=== PATIENT | male | born 1930 | race Caucasian/White ===

== ENCOUNTER 2016-10-09 14:33 | Emergency (ER) | payer MEDICARE, OTHER ==
[2016-10-09] MEDS ORDERED: Sodium Chloride 0.9% 1000 ML 1,000 ML IV SCH (15:00)
[2016-10-09] MEDS ORDERED: APRESOLINE 20 MG/ML INJ IV ONE (15:01)
--- NOTE | 2016-10-09 15:03 | ERPHSYRPT ---
- History of Present Illness Time Seen by Provider: 10/09/16 14:55 Source: patient Exam Limitations: clinical condition Patient Subjective Stated Complaint: "i ate italain bread two days ago. i have not had a good bm since. i had a small one today and when i wiped, there was blood on the tissue. i had to strain really hard to have my bm" Triage Nursing Assessment: aox3, breathing easy unlabored, skin pink warm dry, steady gait, able ot speak in complete setences Physician History: PATIENT COMPLAINS OF INTERMITTENT RECTAL BLEEDING PAST 2 DAYS. DENIES EMESIS, ABDOMINAL PAIN, WEAKNESS OR LETHARGY. DENIES ASSOCIATED FEVER, CHILLS. Timing/Duration: day(s) Severity: mild Associated Symptoms: denies symptoms Allergies/Adverse Reactions: No Known Drug Allergies Allergy (Unverified 10/09/16 15:01) Home Medications: Aspirin [Ecotrin] 81 mg PO DAILY 03/19/15 [History] Carvedilol [Coreg] 25 mg PO BID 03/19/15 [History] Digoxin 0.125 mg Tablet [Lanoxin 0.125MG TABLET] 125 mcg PO DAILY [History] Furosemide [Lasix] 20 mg PO BID 03/19/15 [History] Glimepiride 2 mg [Amaryl 2 MG] 2 mg PO DAILY 03/19/15 [History] Lansoprazole [Prevacid] 30 mg PO DAILY 03/19/15 [History] Losartan Potassium 50 mg [Cozaar 50 MG] 50 mg PO BID 03/19/15 [History] Potassium Chloride 10 Meq Tab* [Klor Con 10 MEQ] 10 meq PO DAILY 03/19/15 [ History] Pravastatin Sodium [Pravachol] 40 mg PO DAILY 03/19/15 [History] Docusate Sodium [Colace] 100 mg PO DAILY 10/09/16 [History] Hx Tetanus, Diphtheria Vaccination/Date Given: Yes (unknown) Hx Influenza Vaccination/Date Given: Yes (2016) Hx Pneumococcal Vaccination/Date Given: No - Review of Systems Constitutional: No Fever, No Chills Eyes: No Symptoms Ears, Nose, & Throat: No Symptoms Respiratory: No Symptoms, No Cough, No Dyspnea Cardiac: No Symptoms, No Chest Pain, No Edema, No Syncope Abdominal/Gastrointestinal: No Symptoms, Other (RECTAL BLEEDING), No Abdominal Pain, No Nausea, No Vomiting, No Diarrhea Genitourinary Symptoms: No Symptoms, No Dysuria Musculoskeletal: No Symptoms, No Back Pain, No Neck Pain Skin: No Symptoms, No Rash Neurological: No Dizziness, No Focal Weakness, No Sensory Changes Psychological: No Symptoms Endocrine: No Symptoms All Other Systems: Reviewed and Negative - Past Medical History Pertinent Past Medical History: Yes Cardiac History: Arrhythmia, Coronary Artery Disease, High Cholesterol, Hypertension Endocrine Medical History: Diabetes Type II GI Medical History: GERD - Past Surgical History Past Surgical History: Yes Cardiac: CABG, Internal Defibrillator, Pacemaker - Social History Smoking Status: Former smoker Exposure to second hand smoke: No Drug Use: none Patient Lives Alone: Yes - Nursing Vital Signs Nursing Vital Signs: Initial Vital Signs Temperature 97.7 F Temperature Source Oral Pulse Rate 64 Respiratory Rate 12 Blood Pressure [Right Arm] 126/58 Pain Intensity 0 - Physical Exam General Appearance: no apparent distress, alert Eye Exam: PERRL/EOMI, eyes nml inspection Ears, Nose, Throat Exam: normal ENT inspection, TMs normal, pharynx normal, moist mucous membranes Neck Exam: normal inspection, non-tender, supple, full range of motion Respiratory Exam: normal breath sounds, lungs clear, No respiratory distress Cardiovascular Exam: regular rate/rhythm, normal heart sounds, normal peripheral pulses Gastrointestinal/Abdomen Exam: soft, normal bowel sounds, No tenderness, No mass Rectal Exam: normal rectal tone (PERIRECTAL FISSURES, SLIGHT MAROON STOOL) Back Exam: normal inspection, normal range of motion, No CVA tenderness, No vertebral tenderness Extremity Exam: normal inspection, normal range of motion, pelvis stable Neurologic Exam: alert, oriented x 3, cooperative, normal mood/affect, nml cerebellar function, nml station & gait, sensation nml, No motor deficits Skin Exam: normal color, warm, dry, No rash Lymphatic Exam: No adenopathy SpO2 Interpretation: normal SpO2: 94 Oxygen Delivery: Room Air Ordered Tests: Active Orders 24 hr Category Date Time Status IV Insertion STAT Care 10/09/16 15:11 Active Oxygen-ED Only NASAL CANNULA 2 lpm Care 10/09/16 14:59 Active CBC W DIFF Stat Lab 10/09/16 14:55 Completed CMP Stat Lab 10/09/16 14:55 Completed DIGOXIN Stat Lab 10/09/16 14:55 Completed Occult Blood,Stool Other Stat Lab 10/09/16 15:00 Completed PROTIME WITH INR Stat Lab 10/09/16 14:55 Completed Medication Summary Generic Name Dose Route Start Last Admin Trade Name Dc PRN Reason Stop Dose Admin Sodium Chloride 1,000 mls @ 50 mls/hr 10/09/16 15:00 10/09/16 15:10 Sodium Chloride 0.9% 1000 Ml IV 11/08/16 14:59 50 mls/hr .Q20H BECKY Administration Discontinued Medications Generic Name Dose Route Start Last Admin Trade Name Dc PRN Reason Stop Dose Admin Hydralazine HCl 10 mg 10/09/16 15:01 10/09/16 15:10 Apresoline 20 Mg/Ml Inj IV 10/09/16 15:02 10 mg STAT ONE Administration Hydralazine HCl Confirm 10/09/16 15:07 Apresoline 20 Mg/Ml Inj Administered 10/09/16 15:08 Dose 20 mg .ROUTE .STK-MED ONE Sodium Chloride Confirm 10/09/16 15:07 Sodium Chloride 0.9% 1000 Ml Administered 10/09/16 15:08 Dose 1,000 mls @ ud .ROUTE .STK-MED ONE Lab/Rad Data: Laboratory Result Diagrams 10/09/16 14:55 10/09/16 14:55 Laboratory Results 10/09/16 10/09/16 10/09/16 Range/Units 15:00 14:55 14:55 WBC (4.0-10.5) K/mm3 RBC (4.1-5.6) M/mm3 Hgb (12.5-18.0) gm/dl Hct (42-50) % MCV (78-100) fl MCH (26-32) pg MCHC (32-36) g/dl RDW (11.5-14.0) % Plt Count (150-450) K/mm3 MPV (6-9.5) fl Gran % (36.0-66.0) % Lymphocytes % (24.0-44.0) % Monocytes % (0.0-12.0) % Eosinophils % (0.00-5.0) % Basophils % (0.0-0.4) % Basophils # (0-0.4) INR 1.16 (0.8-3.0) Sodium (136-145) mEq/L Potassium (3.5-5.1) mEq/L Chloride (98-107) mEq/L Carbon Dioxide (21-32) mEq/L Anion Gap (5-15) MEQ/L BUN (9-20) mg/dL Creatinine (0.55-1.30) mg/dl Estimated GFR ML/MIN Glucose (70-110) MG/DL Calcium (8.5-10.1) mg/dL Total Bilirubin (0.2-1.0) mg/dL AST (15-37) U/L ALT (12-78) U/L Alkaline Phosphatase (46-116) U/L Serum Total Protein (6.4-8.2) gm/dL Albumin (3.4-5.0) g/dL Stool Occult Blood NEGATIVE (Negative) Digoxin 1.08 (0.9-2.0) ng/ml 10/09/16 10/09/16 Range/Units 14:55 14:55 WBC 9.4 (4.0-10.5) K/mm3 RBC 5.69 H (4.1-5.6) M/mm3 Hgb 16.4 (12.5-18.0) gm/dl Hct 47.6 (42-50) % MCV 83.7 (78-100) fl MCH 28.8 (26-32) pg MCHC 34.5 (32-36) g/dl RDW 13.2 (11.5-14.0) % Plt Count 164 (150-450) K/mm3 MPV 9.6 H (6-9.5) fl Gran % 55.0 (36.0-66.0) % Lymphocytes % 27.5 (24.0-44.0) % Monocytes % 13.1 H (0.0-12.0) % Eosinophils % 3.9 (0.00-5.0) % Basophils % 0.5 (0.0-0.4) % Basophils # 0.05 (0-0.4) INR (0.8-3.0) Sodium 139 (136-145) mEq/L Potassium 4.5 (3.5-5.1) mEq/L Chloride 103 (98-107) mEq/L Carbon Dioxide 23.4 (21-32) mEq/L Anion Gap 17.1 H (5-15) MEQ/L BUN 36 H (9-20) mg/dL Creatinine 2.14 H (0.55-1.30) mg/dl Estimated GFR 31 ML/MIN Glucose 155 H (70-110) MG/DL Calcium 8.8 (8.5-10.1) mg/dL Total Bilirubin 0.5 (0.2-1.0) mg/dL AST 19 (15-37) U/L ALT 22 (12-78) U/L Alkaline Phosphatase 66 (46-116) U/L Serum Total Protein 7.7 (6.4-8.2) gm/dL Albumin 3.6 (3.4-5.0) g/dL Stool Occult Blood (Negative) Digoxin (0.9-2.0) ng/ml - Progress Progress Note: 10/09/16 16:26 THE OCCULT STOOL IS NEGATIVE, HGB-16.4 Counseled pt/family regarding: lab results, diagnosis, need for follow-up - Departure Time of Disposition: 17:35 Departure Disposition: Home Clinical Impression: CONSTIPATION Condition: Stable Critical Care Time: No Additional Instructions: TAKE OVER THE COUNTER COLACE EVERY 8 HOURS NEEDED, GLYCERINE SUPPOSITORY DAILY NEEDED FOR CONSTIPATION. FOLLOWUP WITH YOUR PRIMARY CARE PHYSICIAN. CALL OFFICE TOMORROW FOR APPOINTMENT. Prescriptions: Glycerin Supp. [Glycerin Adult Suppository] 1 supp.rect RC DAILY PRN #10 supp.rect PRN Reason: Constipation
[2016-10-09] MEDS ORDERED: Sodium Chloride 0.9% 1000 ML 1,000 ML ONE (15:07)
[2016-10-09] MEDS ORDERED: APRESOLINE 20 MG/ML INJ ONE (15:07)
[2016-10-09 15:21] LABS: BASOPHIL % 0.5 % (0.0-0.4); Eosinophil % 3.9 % (0.00-5.0); Lymphocytes % 27.5 % (24.0-44.0); Mean Cell Volume 83.7 fl (78-100); Mean Corpuscular Hemoglobin 28.8 pg (26-32); Mean Platelet Volume 9.6 fl (6-9.5); Monocytes % 13.1 % (0.0-12.0); Platelet Count 164 K/mm3 (150-450); Red Blood Count 5.69 M/mm3 (4.1-5.6); Red Cell Distribution Width 13.2 % (11.5-14.0); White Blood Count 9.4 K/mm3 (4.0-10.5)
[2016-10-09 15:51] LABS: INR 1.16 (0.8-3.0); PROTIME 12.9 SECONDS (8.83-12.87)
[2016-10-09 16:00] LABS: ALBUMIN 3.6 g/dL (3.4-5.0); ANION GAP 17.1 MEQ/L (5-15); BILIRUBIN,TOTAL 0.5 mg/dL (0.2-1.0); Carbon Dioxide 23.4 mEq/L (21-32); Potassium 4.5 mEq/L (3.5-5.1); Total Protein 7.7 gm/dL (6.4-8.2)
[2016-10-09 16:12] VITALS: BP 126/58; PULSE 64
[2016-10-09 16:32] VITALS: O2SAT 94
== END 2016-10-09 16:41 ==
LOC: ED 14:33
DX: K59.00 Constipation, unspecified (principal); K62.5 Hemorrhage of anus and rectum; I10 Essential (primary) hypertension; E11.9 Type 2 diabetes mellitus without complications; Z79.899 Other long term (current) drug therapy; Z95.1 Presence of aortocoronary bypass graft; Z98.61 Coronary angioplasty status; Z95.0 Presence of cardiac pacemaker
CPT/HCPCS: 36000; 36415; 80053; 80162; 82272; 85025; 85610; 96360; 96361; 99283; J0360

== ENCOUNTER 2019-01-28 12:06 | Observation (INO) | payer MEDICARE, OTHER ==
[2019-01-28] MEDS ORDERED: Sodium Chloride 0.9% 1000 ML 1,000 ML IV STA (12:14)
[2019-01-28] MEDS ORDERED: PROTONIX 40 MG IV IV ONE ×2 (12:14→12:43)
--- NOTE | 2019-01-28 12:19 | ERPHSYRPT ---
- History of Present Illness Time Seen by Provider: 01/28/19 12:17 Historian: patient Exam Limitations: no limitations Physician History: mild epigastric cramps for one day, nonrad, no injury, no NV, +dark stools, not dizzy Allergies/Adverse Reactions: No Known Drug Allergies Allergy (Verified 01/28/19 12:20) Home Medications: Aspirin [Ecotrin] 81 mg PO DAILY 03/19/15 [History] Carvedilol [Coreg] 25 mg PO BID 03/19/15 [History] Digoxin 0.125 mg Tablet [Lanoxin 0.125MG TABLET] 125 mcg PO DAILY [History] Furosemide [Lasix] 20 mg PO BID 03/19/15 [History] Glimepiride 2 mg [Amaryl 2 MG] 2 mg PO DAILY 03/19/15 [History] Lansoprazole [Prevacid] 30 mg PO DAILY 03/19/15 [History] Losartan Potassium 50 mg [Cozaar 50 MG] 50 mg PO BID 03/19/15 [History] Potassium Chloride 10 Meq Tab* [Klor Con 10 MEQ] 10 meq PO DAILY 03/19/15 [ History] Pravastatin Sodium [Pravachol] 40 mg PO DAILY 03/19/15 [History] Docusate Sodium [Colace] 100 mg PO DAILY 10/09/16 [History] Hx Tetanus, Diphtheria Vaccination/Date Given: Yes (unknown) Hx Influenza Vaccination/Date Given: Yes (2016) Hx Pneumococcal Vaccination/Date Given: No - Review of Systems Constitutional: Weakness, No Fever Eyes: No Eye Redness Ears, Nose, & Throat: No Mouth Pain Respiratory: No Dyspnea Cardiac: No Chest Pain Abdominal/Gastrointestinal: Abdominal Pain, Melena, No Vomiting Genitourinary Symptoms: No Dysuria Musculoskeletal: No Back Pain, No Neck Pain Skin: No Rash Neurological: No Dizziness - Past Medical History Pertinent Past Medical History: Yes Cardiac History: Arrhythmia, Coronary Artery Disease, High Cholesterol, Hypertension Endocrine Medical History: Diabetes Type II GI Medical History: GERD - Past Surgical History Past Surgical History: Yes Cardiac: CABG, Internal Defibrillator, Pacemaker - Social History Smoking Status: Former smoker Exposure to second hand smoke: No Drug Use: none Patient Lives Alone: Yes - Nursing Vital Signs Nursing Vital Signs: Initial Vital Signs Temperature 96.7 F 01/28/19 12:16 Pulse Rate 84 01/28/19 12:16 Respiratory Rate 18 01/28/19 12:16 Blood Pressure 174/91 01/28/19 12:16 Pain Scale Pain Intensity 3 - Physical Exam General Appearance: no apparent distress Eye Exam: eyes nml inspection Ears, Nose, Throat Exam: moist mucous membranes Neck Exam: normal inspection Respiratory Exam: normal breath sounds Cardiovascular Exam: regular rate/rhythm Gastrointestinal/Abdomen Exam: soft, No tenderness, No distention Extremity Exam: normal range of motion Neurologic Exam: alert, oriented x 3, cooperative Skin Exam: normal color, warm, dry - Course Nursing assessment & vital signs reviewed: Yes EKG Interpreted by Me: Other (v paced 69) Ordered Tests: Active Orders 24 hr Category Date Time Status EKG-ER Only STAT Care 01/28/19 12:14 Active EKG-ER Only STAT Care 01/28/19 12:16 Active IV Insertion STAT Care 01/28/19 12:14 Active IV Insertion STAT Care 01/28/19 12:16 Active CBC W DIFF Stat Lab 01/28/19 13:00 Completed CMP Stat Lab 01/28/19 13:00 Completed LIPASE Stat Lab 01/28/19 13:00 Completed Lactic Acid Stat Lab 01/28/19 12:30 Completed Occult Blood, Other Screening Stat Lab 01/28/19 12:40 Completed PROTIME WITH INR Stat Lab 01/28/19 13:00 Completed TROPONIN Q3H Lab 01/28/19 13:00 Completed TROPONIN Q3H Lab 01/28/19 15:15 Ordered TROPONIN Q3H Lab 01/28/19 18:15 Ordered TROPONIN Q3H Lab 01/28/19 21:15 Ordered TROPONIN Q3H Lab 01/29/19 00:15 Ordered TROPONIN Q3H Lab 01/29/19 00:30 Ordered UA W/RFX UR CULTURE Stat Lab 01/28/19 12:15 Completed Medication Summary Discontinued Medications Generic Name Dose Route Start Last Admin Trade Name Freq PRN Reason Stop Dose Admin Sodium Chloride 1,000 mls @ 999 mls/hr 01/28/19 12:14 01/28/19 12:47 Sodium Chloride 0.9% 1000 Ml IV 01/28/19 13:14 999 mls/hr .Q1H1M STA Administration Sodium Chloride Confirm 01/28/19 12:43 Sodium Chloride 0.9% 1000 Ml Administered 01/28/19 12:44 Dose 1,000 mls @ ud .ROUTE .STK-MED ONE Pantoprazole Sodium 40 mg 01/28/19 12:14 01/28/19 12:47 Protonix 40 Mg Iv IV 01/28/19 12:15 40 mg STAT ONE Administration Pantoprazole Sodium Confirm 01/28/19 12:43 Protonix 40 Mg Iv Administered 01/28/19 12:44 Dose 40 mg IV .STK-MED ONE Lab/Rad Data: Laboratory Result Diagrams 01/28/19 13:00 01/28/19 13:00 Laboratory Results 01/28/19 01/28/19 01/28/19 Range/Units 13:00 13:00 13:00 WBC (4.0-10.5) K/mm3 RBC (4.1-5.6) M/mm3 Hgb (12.5-18.0) gm/dl Hct (42-50) % MCV (78-100) fl MCH (26-32) pg MCHC (32-36) g/dl RDW (11.5-14.0) % Plt Count (150-450) K/mm3 MPV (6-9.5) fl Gran % (36.0-66.0) % Eos # (Auto) (0-0.5) Absolute Lymphs (auto) (1.0-4.6) Absolute Monos (auto) (0.0-1.3) Lymphocytes % (24.0-44.0) % Monocytes % (0.0-12.0) % Eosinophils % (0.00-5.0) % Basophils % (0.0-0.4) % Absolute Granulocytes (1.4-6.9) Basophils # (0-0.4) PT 14.2 H (8.83-12.87) SECONDS INR 1.22 (0.8-3.0) Sodium 137 (137-145) mmol/L Potassium 5.0 (3.5-5.1) mmol/L Chloride 100 (98-107) mmol/L Carbon Dioxide 27 (22-30) mmol/L Anion Gap 14.5 (5-15) MEQ/L BUN 29 H (9-20) mg/dL Creatinine 1.51 H (0.66-1.25) mg/dL Estimated GFR 46.7 ML/MIN Glucose 157 H (74-106) mg/dL Lactic Acid (0.4-2.0) Calcium 9.0 (8.4-10.2) mg/dL Total Bilirubin 0.50 (0.2-1.3) mg/dL AST 37 (17-59) U/L ALT 17 (0-50) U/L Alkaline Phosphatase 65 (38-126) U/L Troponin I 0.018 (0.000-0.034) ng/mL Serum Total Protein 7.1 (6.3-8.2) g/dL Albumin 3.7 (3.5-5.0) g/dL Lipase 44 (23-300) U/L Urine Color (YELLOW) Urine Appearance (CLEAR) Urine pH (5-6) Ur Specific Cadwell (1.005-1.025) Urine Protein (Negative) Urine Ketones (NEGATIVE) Urine Blood (0-5) Casey/ul Urine Nitrite (NEGATIVE) Urine Bilirubin (NEGATIVE) Urine Urobilinogen (0-1) mg/dL Ur Leukocyte Esterase (NEGATIVE) Urine WBC (Auto) (0-5) /HPF Urine RBC (Auto) (0-2) /HPF U Epithel Cells (Auto) (FEW) /HPF Urine Bacteria (Auto) (NEGATIVE) /HPF Urine Mucus (Auto) (NEGATIVE) /HPF Urine Culture Reflexed (NO) Urine Glucose (NEGATIVE) mg/dL Stool Occult Blood (Negative) 01/28/19 01/28/19 01/28/19 Range/Units 13:00 12:40 12:30 WBC 8.2 (4.0-10.5) K/mm3 RBC 5.43 (4.1-5.6) M/mm3 Hgb 16.0 (12.5-18.0) gm/dl Hct 47.1 (42-50) % MCV 86.7 (78-100) fl MCH 29.5 (26-32) pg MCHC 34.0 (32-36) g/dl RDW 13.5 (11.5-14.0) % Plt Count 141 L (150-450) K/mm3 MPV 9.2 (6-9.5) fl Gran % 63.4 (36.0-66.0) % Eos # (Auto) 0.27 (0-0.5) Absolute Lymphs (auto) 1.87 (1.0-4.6) Absolute Monos (auto) 0.83 (0.0-1.3) Lymphocytes % 22.7 L (24.0-44.0) % Monocytes % 10.1 (0.0-12.0) % Eosinophils % 3.3 (0.00-5.0) % Basophils % 0.5 (0.0-0.4) % Absolute Granulocytes 5.21 (1.4-6.9) Basophils # 0.04 (0-0.4) PT (8.83-12.87) SECONDS INR (0.8-3.0) Sodium (137-145) mmol/L Potassium (3.5-5.1) mmol/L Chloride (98-107) mmol/L Carbon Dioxide (22-30) mmol/L Anion Gap (5-15) MEQ/L BUN (9-20) mg/dL Creatinine (0.66-1.25) mg/dL Estimated GFR ML/MIN Glucose (74-106) mg/dL Lactic Acid 1.2 (0.4-2.0) Calcium (8.4-10.2) mg/dL Total Bilirubin (0.2-1.3) mg/dL AST (17-59) U/L ALT (0-50) U/L Alkaline Phosphatase (38-126) U/L Troponin I (0.000-0.034) ng/mL Serum Total Protein (6.3-8.2) g/dL Albumin (3.5-5.0) g/dL Lipase (23-300) U/L Urine Color (YELLOW) Urine Appearance (CLEAR) Urine pH (5-6) Ur Specific [place]well (1.005-1.025) Urine Protein (Negative) Urine Ketones (NEGATIVE) Urine Blood (0-5) Casey/ul Urine Nitrite (NEGATIVE) Urine Bilirubin (NEGATIVE) Urine Urobilinogen (0-1) mg/dL Ur Leukocyte Esterase (NEGATIVE) Urine WBC (Auto) (0-5) /HPF Urine RBC (Auto) (0-2) /HPF U Epithel Cells (Auto) (FEW) /HPF Urine Bacteria (Auto) (NEGATIVE) /HPF Urine Mucus (Auto) (NEGATIVE) /HPF Urine Culture Reflexed (NO) Urine Glucose (NEGATIVE) mg/dL Stool Occult Blood POSITIVE A (Negative) 01/28/19 Range/Units 12:15 WBC (4.0-10.5) K/mm3 RBC (4.1-5.6) M/mm3 Hgb (12.5-18.0) gm/dl Hct (42-50) % MCV (78-100) fl MCH (26-32) pg MCHC (32-36) g/dl RDW (11.5-14.0) % Plt Count (150-450) K/mm3 MPV (6-9.5) fl Gran % (36.0-66.0) % Eos # (Auto) (0-0.5) Absolute Lymphs (auto) (1.0-4.6) Absolute Monos (auto) (0.0-1.3) Lymphocytes % (24.0-44.0) % Monocytes % (0.0-12.0) % Eosinophils % (0.00-5.0) % Basophils % (0.0-0.4) % Absolute Granulocytes (1.4-6.9) Basophils # (0-0.4) PT (8.83-12.87) SECONDS INR (0.8-3.0) Sodium (137-145) mmol/L Potassium (3.5-5.1) mmol/L Chloride (98-107) mmol/L Carbon Dioxide (22-30) mmol/L Anion Gap (5-15) MEQ/L BUN (9-20) mg/dL Creatinine (0.66-1.25) mg/dL Estimated GFR ML/MIN Glucose (74-106) mg/dL Lactic Acid (0.4-2.0) Calcium (8.4-10.2) mg/dL Total Bilirubin (0.2-1.3) mg/dL AST (17-59) U/L ALT (0-50) U/L Alkaline Phosphatase (38-126) U/L Troponin I (0.000-0.034) ng/mL Serum Total Protein (6.3-8.2) g/dL Albumin (3.5-5.0) g/dL Lipase (23-300) U/L Urine Color YELLOW (YELLOW) Urine Appearance CLEAR (CLEAR) Urine pH 7.0 (5-6) Ur Specific [place] 1.008 (1.005-1.025) Urine Protein NEGATIVE (Negative) Urine Ketones NEGATIVE (NEGATIVE) Urine Blood NEGATIVE (0-5) Casey/ul Urine Nitrite NEGATIVE (NEGATIVE) Urine Bilirubin NEGATIVE (NEGATIVE) Urine Urobilinogen NEGATIVE (0-1) mg/dL Ur Leukocyte Esterase NEGATIVE (NEGATIVE) Urine WBC (Auto) NONE (0-5) /HPF Urine RBC (Auto) NONE (0-2) /HPF U Epithel Cells (Auto) NONE (FEW) /HPF Urine Bacteria (Auto) NONE SEEN (NEGATIVE) /HPF Urine Mucus (Auto) SLIGHT (NEGATIVE) /HPF Urine Culture Reflexed NO (NO) Urine Glucose 50 (NEGATIVE) mg/dL Stool Occult Blood (Negative) - Progress Progress: improved Progress Note: 01/28/19 15:28 admit d/w Dr Combs, consult d/w Dr Silvia Brownlee for dark hemoccult +stools - Departure Departure Disposition: Observation Clinical Impression: GI bleed Qualifiers: GI bleed type/associated pathology: melena Qualified Code(s): K92.1 - Melena Condition: Stable Critical Care Time: No Referrals: KELSI COMBS [Primary Care Provider] -
[2019-01-28] MEDS ORDERED: Sodium Chloride 0.9% 1000 ML 1,000 ML ONE (12:43)
[2019-01-28 13:11] LABS: BASOPHIL % 0.5 % (0.0-0.4); Basophil (Absolute #) 0.04 (0-0.4); Eosinophil % 3.3 % (0.00-5.0); Eosinophil (Absolute #) 0.27 (0-0.5); Granulocyte Absolute (ANC) 5.21 (1.4-6.9); Granulocytes % 63.4 % (36.0-66.0); Hematocrit 47.1 % (42-50); Lymphocyte (Absolute #) 1.87 (1.0-4.6); Lymphocytes % 22.7 % (24.0-44.0); Mean Cell Volume 86.7 fl (78-100); Mean Corpuscular Hemoglobin 29.5 pg (26-32); Mean Platelet Volume 9.2 fl (6-9.5); Monocyte (Absolute #) 0.83 (0.0-1.3); Monocytes % 10.1 % (0.0-12.0); Platelet Count 141 K/mm3 (150-450); Red Blood Count 5.43 M/mm3 (4.1-5.6); Red Cell Distribution Width 13.5 % (11.5-14.0); White Blood Count 8.2 K/mm3 (4.0-10.5)
[2019-01-28 13:13] LABS: Appearance CLEAR (CLEAR); Bilirubin NEGATIVE (NEGATIVE); Blood NEGATIVE Ery/ul (0-5); Glucose 50 mg/dL (NEGATIVE); Ketones NEGATIVE (NEGATIVE); Leukocyte Esterase NEGATIVE (NEGATIVE); Mucus SLIGHT /HPF (NEGATIVE); Nitrite NEGATIVE (NEGATIVE); Protein,Urine Dip NEGATIVE (Negative); Specific Gravity 1.008 (1.005-1.025); Urobilinogen NEGATIVE mg/dL (0-1)
[2019-01-28 13:16] LABS: Bacteria NONE SEEN /HPF (NEGATIVE)
[2019-01-28 13:33] LABS: INR 1.22 (0.8-3.0); PROTIME 14.2 SECONDS (8.83-12.87)
[2019-01-28 14:33] LABS: ALBUMIN 3.7 g/dL (3.5-5.0); ANION GAP 14.5 MEQ/L (5-15); BILIRUBIN,TOTAL 0.5 mg/dL (0.2-1.3); Creatinine 1 1.51 mg/dL (0.66-1.25); Total Protein 7.1 g/dL (6.3-8.2)
[2019-01-28] MEDS ORDERED: NovoLOG Insulin SQ PRN (16:46)
[2019-01-28] MEDS ORDERED: Zofran 4 MG/2 ML VIAL IV PRN (16:46)
[2019-01-28] MEDS ORDERED: Sodium Chloride 0.9% 1000 ML 1,000 ML IV SCH (16:46)
[2019-01-28] MEDS ORDERED: TYLENOL 325 MG PO PRN (17:20)
[2019-01-28] MEDS ORDERED: MEDICATION INTERVENTION PO SCH (17:30)
[2019-01-28] MEDS: LASIX 20 MG PO SCH (17:47)
[2019-01-28] MEDS: Cozaar 50 MG PO SCH (17:47)
[2019-01-28 18:08] LABS: BASOPHIL % 0.4 % (0.0-0.4); Basophil (Absolute #) 0.04 (0-0.4); Eosinophil % 3.2 % (0.00-5.0); Eosinophil (Absolute #) 0.29 (0-0.5); Granulocyte Absolute (ANC) 5.37 (1.4-6.9); Granulocytes % 58.4 % (36.0-66.0); Hematocrit 47.1 % (42-50); Lymphocyte (Absolute #) 2.38 (1.0-4.6); Lymphocytes % 25.9 % (24.0-44.0); Mean Cell Volume 87.1 fl (78-100); Mean Corpuscular Hemoglobin 29.6 pg (26-32); Mean Platelet Volume 8.7 fl (6-9.5); Monocyte (Absolute #) 1.11 (0.0-1.3); Monocytes % 12.1 % (0.0-12.0); Platelet Count 129 K/mm3 (150-450); Red Blood Count 5.41 M/mm3 (4.1-5.6); Red Cell Distribution Width 13.5 % (11.5-14.0); White Blood Count 9.2 K/mm3 (4.0-10.5)
[2019-01-28] MEDS ORDERED: DESYREL 50 MG PO PRN (18:52)
[2019-01-28] MEDS: MORPHINE SULFATE 2 MG INJ IV PRN ×2 (19:15→23:19)
[2019-01-28] MEDS ORDERED: NON-FORMULARY ITEM (Carvedilol [Coreg] 25 MG) PO SCH (22:00)
[2019-01-28] MEDS: COREG 12.5 MG PO SCH (22:01)
[2019-01-29] MEDS ORDERED: Sodium Chloride 0.9% 1000 ML 0 ML ONE (04:02)
[2019-01-29] MEDS: MORPHINE SULFATE 2 MG INJ IV PRN (04:10)
[2019-01-29 05:44] LABS: BASOPHIL % 0.9 % (0.0-0.4); Basophil (Absolute #) 0.07 (0-0.4); Eosinophil % 4.1 % (0.00-5.0); Eosinophil (Absolute #) 0.31 (0-0.5); Granulocyte Absolute (ANC) 4.08 (1.4-6.9); Granulocytes % 54.4 % (36.0-66.0); Hematocrit 46.6 % (42-50); Hemoglobin 15.5 gm/dl (12.5-18.0); Lymphocyte (Absolute #) 1.97 (1.0-4.6); Lymphocytes % 26.3 % (24.0-44.0); Mean Cell Volume 87.3 fl (78-100); Mean Corpuscular Hgb Concent. 33.3 g/dl (32-36); Mean Platelet Volume 8.8 fl (6-9.5); Monocyte (Absolute #) 1.07 (0.0-1.3); Monocytes % 14.3 % (0.0-12.0); Platelet Count 130 K/mm3 (150-450); Red Blood Count 5.34 M/mm3 (4.1-5.6); Red Cell Distribution Width 13.6 % (11.5-14.0); White Blood Count 7.5 K/mm3 (4.0-10.5)
[2019-01-29 06:17] LABS: ANION GAP 10.5 MEQ/L (5-15); Calcium 8.5 mg/dL (8.4-10.2); Creatinine 1 1.28 mg/dL (0.66-1.25); Potassium 4.4 mmol/L (3.5-5.1)
[2019-01-29] MEDS ORDERED: DESYREL 50 MG PO PRN (07:15)
--- NOTE | 2019-01-29 07:53 | XRAY ---
Indication: Left upper quadrant pain. Constipation. Multiple contiguous axial images obtained through the abdomen and pelvis using enteric contrast only. Exam was initially ordered with IV contrast but not administered due to poor renal function. Comparison: None Lung bases demonstrates pulmonary emphysema and tiny calcified granulomas. No infiltrate or effusion. Heart is not enlarged with partially visualized pacer leads. Stomach is distended with contrast. Contrasted stomach and bowel loops appear nonobstructed. Normal appendix. No free fluid/air. Colon demonstrates mild diffuse scattered fecal debris and diverticulosis throughout. 1.3 cm left renal cyst. Enlarged prostate gland impresses on the base of the bladder. Remaining liver, gallbladder, pancreas, spleen, adrenal glands, kidneys, ureters, and bladder appear unremarkable for noncontrast exam. Moderate scattered vascular calcifications. Abdominal aorta demonstrates multifocal fusiform aneurysms, largest just inferior to the celiac artery measuring 3.7 cm in diameter. Osseous structures shows mild degenerative changes throughout the spine and both hips. No ventral or inguinal hernias. A few incidental left inguinal surgical clips. Impression: 1. Mild diffuse scattered fecal stasis without obstruction and colonic diverticulosis. 2. 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 3. Enlarged prostate gland and left renal cyst. 4. Pulmonary emphysema and evidence for old granulomatous disease. 5. No acute intra-abdominal/pelvic abnormalities on this noncontrast exam. CTDI 8.20
[2019-01-29] MEDS ORDERED: Amaryl 2 MG PO SCH (08:00)
[2019-01-29] MEDS: Cozaar 50 MG PO SCH (09:40)
[2019-01-29] MEDS: LASIX 20 MG PO SCH ×2 (09:41→18:18)
[2019-01-29] MEDS: Lanoxin 0.125MG TABLET PO SCH (09:41)
[2019-01-29] MEDS: COREG 12.5 MG PO SCH ×2 (09:43→22:10)
[2019-01-29] MEDS: PROTONIX 40 MG IV IV SCH (09:49)
[2019-01-29] MEDS ORDERED: Protonix 40MG Tablet PO SCH (10:00)
[2019-01-29] MEDS ORDERED: NON-FORMULARY ITEM (Linaclotide [Linzess] 145 MCG) PO SCH (10:00)
[2019-01-29] MEDS ORDERED: Januvia 50 MG PO SCH (10:00)
[2019-01-29] MEDS ORDERED: NON-FORMULARY ITEM (Lansoprazole [Prevacid] 30 MG) PO SCH (10:00)
[2019-01-29] MEDS ORDERED: Golytely Solution 4000 ML PO ONE (14:00)
[2019-01-29] MEDS: Colace 100 MG PO SCH (22:10)
[2019-01-30] MEDS: PROTONIX 40 MG IV IV SCH (10:05)
[2019-01-30] MEDS: Cozaar 50 MG PO SCH (10:06)
[2019-01-30] MEDS: Lanoxin 0.125MG TABLET PO SCH (10:06)
[2019-01-30] MEDS: COREG 12.5 MG PO SCH ×2 (10:10→20:49)
[2019-01-30] MEDS: Colace 100 MG PO SCH ×2 (10:10→20:49)
[2019-01-30] MEDS: LASIX 20 MG PO SCH ×2 (10:10→17:47)
[2019-01-30] MEDS: MORPHINE SULFATE 2 MG INJ IV PRN ×2 (10:38→14:57)
--- NOTE | 2019-01-30 13:05 | PCM.NOTE ---
Date and Time: 01/30/19 1300 Subjective Assessment: Per his nurse yesterday, he declined further prep for colonoscopy today but now states he continues to have abdominal pain and wants to have prep and colonoscopy tomorrow with Dr. Milan Brownlee. - Review of Systems Constitutional: No Symptoms Respiratory: No Symptoms Cardiac: No Symptoms Abdominal/Gastrointestinal: Abdominal Pain, Constipation Genitourinary Symptoms: No Symptoms Musculoskeletal: No Symptoms Skin: No Symptoms Objective Exam General Appearance: no apparent distress Neurologic Exam: alert, cooperative Skin Exam: normal color, warm, dry Respiratory Exam: normal breath sounds, lungs clear, No crackles/rales, No rhonchi, No wheezing Cardiovascular Exam: regular rate/rhythm, normal heart sounds, No murmur, No friction rub, No gallop Gastrointestinal/Abdomen Exam: soft, tenderness, No distention, No mass, No guarding Extremity Exam: normal inspection OBJECTIVE DATA Vital Signs: Vital Signs - 24 hr Temp Pulse Resp BP BP Pulse Ox 01/30/19 11:41 97.9 F 76 18 177/86 97 01/30/19 10:06 79 180/89 01/30/19 07:15 98.2 F 79 18 180/87 94 L 01/30/19 04:00 98.9 F 68 18 183/87 96 01/29/19 23:54 98.0 F 75 17 132/63 98 01/29/19 20:39 91 L 01/29/19 19:38 97.9 F 67 17 174/86 95 01/29/19 16:00 98.2 F 68 18 196/91 97 Pain Assessment - Last Documented Pain Intensity 8 Pain Scale Used 0-10 Pain Scale Intake and Output: Intake & Output 01/28/19 01/29/19 01/30/19 01/31/19 06:59 06:59 06:59 06:59 Intake Total 720 3908 380 Output Total 1950 400 Balance -1230 3508 380 Weight 53.3 kg Lab Results: Accuchecks Date 01/30/19 Date 01/29/19 Time 07:30 Time 14:00 Accucheck Value: 84 Accucheck Value: 80 Accucheck Value: 107 Accucheck Value: 123 Radiology Exams: Radiology Procedures Category Date Time Status ABDOMEN AND PELVIS W/0 CONTRAS [CT] Routine Exams 01/28/19 20:50 Completed Multi-Disciplinary Progress Notes: Multi-Disciplinary Progress Notes 01/30/19 12:20 (created 01/30/19 12:24) Case Management Note by Trini Linda ABN SIGNED AND PLACED IN CHART AT THIS TIME BY PT, VERBALIZED UNDERSTANDING THAT AFTER 48 HOURS OF OBSERVATION, VISIT WILL LIKELY NOT BE PAID FOR. PT REPORTS THAT HE DOES NOT CARE, HE WANTS TO HAVE EVERYTHING DONE WHILE HE IS HERE. COLONOSCOPY SCHEDULED FOR TOMORROW, 01/31/19 - DR. SAUNDERS WILL ADD ON TO HIS CASE LOAD. Initialized on 01/30/19 12:24 - END OF NOTE 01/30/19 12:02 Case Management Note by Trini Linda CALL TO DELPHINE PEREZ, PT'S DAUGHTER, AT [phone]. EXPLAINED TO PT'S DAUGHTER ABOUT INSURANCE AND THE LIKELIHOOD THAT INSURANCE WILL NOT COVER BEYOND 1630 TODAY. PT'S DAUGHTER VERBALIZED UNDERSTANDING, REPORTS THAT PT COULD GO TO HER HOUSE TO STAY TONIGHT AND RETURN IN THE MORNING FOR THE PROCEDURE, BUT ALSO, REPORTS THAT SHE WILL LEAVE IT UP TO HER DAD. VERBALIZED UNDERSTANDING TO ALL INFORMATION AND ABLE TO REPEAT BACK. UNDERSTANDS THAT AFTER 48 HOURS INSURANCE WILL NOT LIKELY COVER THIS VISIT. Initialized on 01/30/19 12:02 - END OF NOTE 01/30/19 11:25 (created 01/30/19 11:57) Case Management Note by Trini Linda DISCUSSION WITH PT THAT HE WAS NOT MEETING CRITERIA FOR INPATIENT STATUS AND THAT HIS INSURANCE WOULD ONLY COVER UP TO 48 HOURS IN OBSERVATION (WHICH WOULD BE UP TODAY AT 1630). PT REPORTS THAT HE HAS [employer]URANCE AND IT IS THE BEST INSURANCE YOU CAN HAVE. DISCUSSED THAT [employer] WAS HIS SECONDARY INSURANCE, AND THAT THIS INSURANCE WILL LIKELY FOLLOW MEDICARE GUIDELINES. PT REPORTS THAT HE DOESN'T CARE, HE WANTS TO STAY HERE, AND HAVE THE COLONOSCOPY TOMORROW SCHEDULED. REPORTS THAT HE DOES NOT WANT TO GO HOME AND COME BACK. DISCUSSED THAT THIS WAS AN OUTPATIENT PROCEDURE AND ANYTHING DONE AFTER 1630 TODAY WOULD LIKELY NOT BE COVERED. PT VERBALIZED UNDERSTANDING AND REQUESTED THAT THIS MED ADMIN CALL HIS DAUGHTER. Initialized on 01/30/19 11:57 - END OF NOTE Assessment/Plan (1) Melena Current Visit: Yes Status: Acute Assessment & Plan: Patient plans to prep for colonoscopy today/tonight and have this done tomorrow. Code(s): K92.1 - MELENA (2) Abdominal pain Current Visit: Yes Status: Acute Assessment & Plan: Continue morphine as needed and IV protonix. General surgeon has seen patient. Code(s): R10.9 - UNSPECIFIED ABDOMINAL PAIN (3) CAD (coronary artery disease) Current Visit: Yes Status: Acute Assessment & Plan: Sees Dr. Frank; currently stable; EKG with paced rhythm from admission. Code(s): I25.10 - ATHSCL HEART DISEASE OF [place] CORONARY ARTERY W/O ANG PCTRS (4) AAA (abdominal aortic aneurysm) without rupture Current Visit: Yes Status: Acute Assessment & Plan: Less than 5 cm; will have him follow with Dr. Frank. Code(s): I71.4 - ABDOMINAL AORTIC ANEURYSM, WITHOUT RUPTURE (5) Hypertension Current Visit: Yes Status: Acute Qualifiers: Hypertension type: essential hypertension Qualified Code(s): I10 - Essential (primary) hypertension Assessment & Plan: Continue home medication. Code(s): I10 - ESSENTIAL (PRIMARY) HYPERTENSION (6) GERD (gastroesophageal reflux disease) Current Visit: Yes Status: Acute Assessment & Plan: Continue protonix. Code(s): K21.9 - GASTRO-ESOPHAGEAL REFLUX DISEASE WITHOUT ESOPHAGITIS
[2019-01-30] MEDS ORDERED: Golytely Solution 4000 ML PO ONE (15:00)
[2019-01-31] MEDS: MORPHINE SULFATE 2 MG INJ IV PRN (08:02)
--- NOTE | 2019-01-31 09:31 | HP ---
HISTORY OF PRESENT ILLNESS: This is an 88 year-old patient of mine who presented to the emergency department complaining of black stools. The patient also complains of constipation. He states that he recently saw Dr. Yates and from review of the outpatient chart he saw him on 01/18/2019 and was started on Linzess for the constipation. The patient thinks his last colonoscopy was back in . He states two days ago he had a small black stool and has been more constipated for two to three weeks. The patient reports that is also sometimes hard to catch his breath. He recently qualified for oxygen at night at home but declined that here in the hospital. The patient could not really tell me why he declined that. He also reports some epigastric discomfort. He reports the dose of morphine that he had 0400 hours helped take his pain away. He had not been able to sleep until they gave him that medication. REVIEW OF SYSTEMS: No nausea or vomiting. No cough or rhinorrhea. No lower extremity edema. He had some dry skin on his arms and a scrape on his right elbow that is bleeding a little bit. PAST MEDICAL HISTORY: Diabetes mellitus type 2, coronary artery disease, abdominal aortic aneurysm found on CT scan during this hospitalization, hypertension, gastroesophageal reflux disease, congestive heart failure, benign prostatic hypertrophy, chronic kidney disease. PAST SURGICAL HISTORY: Coronary artery bypass graft. Pacemaker with defibrillator. Eye surgery for cataracts. MEDICATIONS: Please see the home medication reconciliation form which I reviewed. ALLERGIES: NKDA. SOCIAL HISTORY: He used to smoke. He has a 43 pack year history. He lives alone. He has family that live in the area. FAMILY HISTORY: His mother is and of old age. His father is and had hypertension. PHYSICAL EXAMINATION: VITAL SIGNS: Temperature current 98.1F, temperature max 98.1F, heart rate 65, respiratory rate 18, blood pressure 128/61. Oxygen saturation 99% on room air. GENERAL: The patient is a pleasant talkative, thin man sitting up in no acute distress. CVS: He has a regular rate and rhythm. No murmurs, gallops or rubs. CHEST: Clear to auscultation bilaterally. No crackles or wheezes. ABDOMEN: He has mild epigastric tenderness. No guarding. No rigidity. Normal bowel sounds. EXTREMITIES: No clubbing, cyanosis or edema. SKIN: He has dry skin on arms bilaterally. Small scrape on his right elbow with some blood on his sheets. LABORATORY DATA AND TESTS: His hemoglobin has been stable. It was 16 on admission, at 1300 hours yesterday and 1800 hours it was 16 and at 0530 hours this morning 15.5. PLT count 130,000. Creatinine 1.2. He had two negative troponins. He had a CT scan of his abdomen and pelvis. Please see the radiologist report for that dictation. ASSESSMENT AND PLAN: 1) MELENA: He had a stool that was positive for blood. General surgeon, Dr. Carlin Brownlee, has been consulted and plans to see the patient today for possible scopes. I did discuss with the patient that may be an option to do the scopes as an outpatient as well. 2) ABDOMINAL PAIN: As there was a concern for ulcer or gastritis, he has been started on a proton pump inhibitor. He has morphine for severe pain and Tylenol for mild pain. 3) DIABETES MELLITUS TYPE 2: As he is not taking as much in, I held his glimepiride and sitagliptin. He has a low dose sliding scale ordered as needed. 4) CORONARY ARTERY DISEASE: He follows with Dr. Frank and this has been stable. 5) ABDOMINAL AORTIC ANEURYSM: Will let Dr. Frank know if he can continue to follow. 6) HYPERTENSION: Currently well controlled. 7) GASTROESOPHAGEAL REFLUX DISEASE: Again continue with pantoprazole.
[2019-01-31] MEDS ORDERED: Lactated Ringers 1,000 ML IV SCH (10:00)
[2019-01-31] MEDS: COREG 12.5 MG PO SCH (10:00)
[2019-01-31] MEDS: Colace 100 MG PO SCH (10:00)
[2019-01-31] MEDS: LASIX 20 MG PO SCH ×2 (10:00→16:39)
[2019-01-31] MEDS: Cozaar 50 MG PO SCH (10:00)
[2019-01-31] MEDS: Lanoxin 0.125MG TABLET PO SCH (10:00)
[2019-01-31] MEDS: PROTONIX 40 MG IV IV SCH (10:01)
--- NOTE | 2019-01-31 10:02 | CONS ---
CONSULT DATE: 01/28/2019 REASON FOR CONSULT: Abdominal pain. HISTORY: This 88 year-old male presents with abdominal pain. He reports that he has been having about three weeks of severe constipation. The pain started about one week ago and pain was significantly worse yesterday and into today. He did notice some dark blood in his bowel movement today or yesterday. He has been straining pretty hard to go to the bathroom and has been taking laxatives to go. His abdominal pain seems to be lower left abdomen. He denies chest pain, shortness of breath, fevers, chills, nausea or vomiting. REVIEW OF SYSTEMS: Twelve systems reviewed and negative except for in the history of present illness. PAST MEDICAL HISTORY: Diabetes, coronary artery disease with myocardial infarction, eye disease. PAST SURGICAL HISTORY: Pacer defibrillator. Coronary artery bypass graft. Colonoscopy in 1990. MEDICATIONS: Reviewed through NOV including baby aspirin. ALLERGIES: NKDA. SOCIAL HISTORY: No tobacco. No alcohol. FAMILY HISTORY: No cancer. PHYSICAL EXAMINATION: GENERAL: No acute distress. HEENT: Sclera nonicteric. Extraocular movements intact. NECK: Supple. No JVD. CHEST: Nonlabored breathing. No crepitus. ABDOMEN: Soft, nondistended, mild tenderness at reducible umbilical hernia that is fairly small otherwise completely nontender and no signs of peritonitis. LAB DATA AND TESTS: White blood cell count within normal limits. Creatinine 1.5. ASSESSMENT: Abdominal pain and rectal bleeding. PLAN: Will plan for CT abdomen and pelvis with p.o. contrast to evaluate for diverticulitis or other types of colitis as a possible etiology of his abdominal pain. He has a very benign exam at this time. Will keep him on clear liquid diet and wait for the CT scan results.
[2019-01-31 15:32] VITALS: BP 148/70; PULSE 75; O2SAT 92
--- NOTE | 2019-01-31 16:02 | PCM.DCORD ---
- Discharge Discharge Date: 01/31/19 Disposition: Home, Self-Care Condition: Fair Prescriptions: New Acetaminophen 325 mg [Tylenol 325 mg] 650 mg PO Q4H PRN PRN tablet PRN Reason: Pain Continue Carvedilol [Coreg] 25 mg PO BID Losartan Potassium 50 mg [Cozaar 50 MG] 50 mg PO DAILY Lansoprazole [Prevacid] 30 mg PO DAILY Furosemide [Lasix] 20 mg PO BID Digoxin 0.125 mg Tablet [Lanoxin 0.125MG TABLET] 125 mcg PO DAILY Aspirin [Ecotrin] 81 mg PO UD Docusate Sodium [Colace] 100 mg PO BID Glycerin Supp. [Glycerin Adult Suppository] 1 supp.rect RC DAILY PRN # 10 supp.rect PRN Reason: Constipation Linaclotide [Linzess] 145 mcg PO DAILY Discontinued Glimepiride 2 mg [Amaryl 2 MG] 2 mg PO DAILY Linagliptin [Tradjenta] 5 mg PO DAILY Additional Instructions: I stopped your diabetes medications because we have not been giving those to you here and your blood glucose has been good here without the medication. If it starts to run high again, we can restart one or both of these medications. Follow up with: KELSI COMBS [Primary Care Provider] - 1 Week ANNIKA SAUNDERS [COURTESY STAFF] - 1 Week
[2019-01-31] MEDS ORDERED: DIPRIVAN 200 MG/20 ML IV ONE (17:42)
--- NOTE | 2019-02-01 08:45 | OP ---
SURGERY DATE/TIME: 01/31/2019 1430 PREOPERATIVE DIAGNOSIS: History of rectal bleeding, abdominal cramping, need for colonoscopy. POSTOPERATIVE DIAGNOSES: 1) Pancolonic diverticulosis most concentrated in the left colon. 2) Polyps ascending colon and transverse colon. 3) Small internal and external hemorrhoids. 4) Tortuous colon. PROCEDURES: 1) Colonoscopy to terminal ileum. 2) Retrograde ileoscopy. 3) Hot biopsy removal of small ascending colon polyp versus hyperplastic lesion. 4) Hot snare polypectomy of transverse colon polyp. SURGEON: Dr. Dl Jarvis. ANESTHESIA: MAC. ESTIMATED BLOOD LOSS: Minimal. INDICATIONS: As noted above. Risks and benefits explained in detail but not limited to and consent obtained. DESCRIPTION OF PROCEDURE AND FINDINGS: The patient is taken to the operating room. MAC anesthesia induced. After official time out and no disagreement with planned procedure, digital rectal exam did not reveal any rectal masses. He did have some small internal and external hemorrhoids. Video colonoscope inserted and passed up through the tortuous sigmoid, descending, transverse and ascending colon. With external pressure the scope was able to be passed around to the cecum and up through the terminal ileum. Retrograde ileoscopy performed which was grossly unremarkable. There were no signs of any active bleeding. No signs of any collections of old blood throughout the colon or the ileum. Scope slowly and carefully withdrawn over the next 10 minutes. Stopped in the ascending colon where a small early polyp versus hyperplastic lesion removed with hot biopsy forceps with brief bursts of cautery. Good hemostasis noted. The scope was slowly and carefully withdrawn. He had some pancolonic diverticulosis most pronounced in the left colon. In the transverse colon there was 3 to 4 mm polyp on a fold this is removed with hot snare polypectomy with brief bursts of cautery. The staff said this polyp was retrieved and sent off for pathology. Good hemostasis noted. The scope is slowly and carefully withdrawn. Again, there is diverticulosis most concentrated in the left colon. There were no signs of any active bleeding. No signs of any old blood or fresh blood. The scope pulled back into the rectum. On retroflex had some internal and external hemorrhoids. No signs of any current active bleeding. The scope is withdrawn. Overall the prep was adequate with some liquidy semi-solid stool slightly limiting the exam for very tiny lesions otherwise there are no signs of any large polyps, masses or obstructing lesions. There had been no fresh or red blood. No signs of any active bleeding. Whether his bleeding had been from diverticular source or irritated small hemorrhoids is unclear but there is no current active bleeding of fresh or old blood in the colon. The scope is withdrawn. The patient tolerated the procedure well. Findings discussed with the family out in the waiting area.
== END 2019-01-31 17:43 | disposition home or self-care (01) ==
LOC: ED 12:06 → MED SURG 16:30 → ED 16:37
PROVIDERS: ADMIT Internal Medicine; ATTEND Internal Medicine
DX: K92.1 Melena (principal); R10.9 Unspecified abdominal pain; K57.30 Diverticulosis of large intestine without perforation or abscess without bleeding; E11.9 Type 2 diabetes mellitus without complications; K63.5 Polyp of colon; I25.10 Atherosclerotic heart disease of native coronary artery without angina pectoris; I71.4 Abdominal aortic aneurysm, without rupture; I10 Essential (primary) hypertension; K21.9 Gastro-esophageal reflux disease without esophagitis; K64.4 Residual hemorrhoidal skin tags; K64.8 Other hemorrhoids; Z79.899 Other long term (current) drug therapy; K59.00 Constipation, unspecified; Z95.0 Presence of cardiac pacemaker; Z95.1 Presence of aortocoronary bypass graft
CPT/HCPCS: 36000; 36415; 45384; 45385; 74176; 80048; 80053; 81001; 82272; 82962; 83036; 83605; 83690; 84484; 85025; 85610; 93005; 94760; 96360; 96361; 96374; 99285; G0378; 99100; J2270; J2405; J2704; A9270-GY

== ENCOUNTER 2019-02-02 01:46 | Observation (INO) | payer MEDICARE, OTHER ==
--- NOTE | 2019-02-02 22:03 | ERPHSYRPT ---
- History of Present Illness Time Seen by Provider: 02/02/19 21:59 Historian: patient Exam Limitations: no limitations Physician History: Pt started c/o periumbilical abdominal pain about one week ago, tonight the pain was more severe, so he called 911. He denies vomiting, nausea, diarrhea, fever, chills, difficulty urinating, other complaints. Timing/Duration: week(s) (1) Activities at Onset: none Quality: cramping Abdominal Pain Onset Location: periumbilical Pain Radiation: no radiation Severity of Pain-Max: severe Modifying Factors: Improves With: nothing Associated Symptoms: other (constipation) Previous symptoms: no prior history Allergies/Adverse Reactions: No Known Drug Allergies Allergy (Verified 01/28/19 12:20) Home Medications: Aspirin [Ecotrin] 81 mg PO UD 03/19/15 [History] Carvedilol [Coreg] 25 mg PO BID 03/19/15 [History] Digoxin 0.125 mg Tablet [Lanoxin 0.125MG TABLET] 125 mcg PO DAILY [History] Furosemide [Lasix] 20 mg PO BID 03/19/15 [History] Lansoprazole [Prevacid] 30 mg PO DAILY 03/19/15 [History] Losartan Potassium 50 mg [Cozaar 50 MG] 50 mg PO DAILY 03/19/15 [History] Docusate Sodium [Colace] 25 mg PO BID 10/09/16 [History] Atorvastatin Calcium 40 mg PO HS 02/02/19 [History] Glimepiride 4 mg [Amaryl 4 mg] 4 mg PO DAILY 02/02/19 [History] Linagliptin [Tradjenta] 5 mg PO DAILY 02/02/19 [History] Hx Tetanus, Diphtheria Vaccination/Date Given: Yes (unknown) Hx Influenza Vaccination/Date Given: Yes (2016) Hx Pneumococcal Vaccination/Date Given: No - Review of Systems Constitutional: No Symptoms Respiratory: No Symptoms Cardiac: No Symptoms Abdominal/Gastrointestinal: Abdominal Pain, Constipation All Other Systems: Reviewed and Negative - Past Medical History Pertinent Past Medical History: Yes Cardiac History: Arrhythmia, Coronary Artery Disease, High Cholesterol, Hypertension Endocrine Medical History: Diabetes Type II GI Medical History: GERD - Past Surgical History Past Surgical History: Yes Cardiac: CABG, Internal Defibrillator, Pacemaker - Social History Smoking Status: Former smoker Exposure to second hand smoke: No Drug Use: none Patient Lives Alone: Yes - Nursing Vital Signs Nursing Vital Signs: Initial Vital Signs Temperature 97.6 F 02/02/19 22:04 Pulse Rate 65 02/02/19 22:04 Respiratory Rate 20 02/02/19 22:04 Blood Pressure 182/85 02/02/19 22:04 O2 Sat by Pulse Oximetry 94 L 02/02/19 22:04 Pain Scale Pain Intensity 0 - Physical Exam General Appearance: no apparent distress Eye Exam: eyes nml inspection Ears, Nose, Throat Exam: normal ENT inspection, moist mucous membranes Neck Exam: normal inspection, non-tender Respiratory Exam: normal breath sounds, lungs clear Cardiovascular Exam: regular rate/rhythm, normal heart sounds, normal peripheral pulses, No murmur Gastrointestinal/Abdomen Exam: soft, normal bowel sounds, tenderness (diffuse, central abdomen, small (< 1 cm umbilcal hernia, easy to reduce, not hardened, no skin changes).), hernia, No distention, No mass, No pulsatile mass, No rebound, No organomegaly Extremity Exam: normal inspection Neurologic Exam: alert, oriented x 3, cooperative, normal mood/affect Skin Exam: normal color, warm, dry, No rash Lymphatic Exam: No adenopathy SpO2 Interpretation: normal O2 Delivery: Room Air - Course Nursing assessment & vital signs reviewed: Yes EKG Interpreted by Me: RATE (65/min), Other (paced) - CT Exams Abdomen CT Interpretation: Negative, Tele-radiologist Report, Other (small umbilical hernia containing fat, no bowel obstruction.) Ordered Tests: Active Orders 24 hr Category Date Time Status EKG-ER Only STAT Care 02/02/19 21:58 Active ABDOMEN AND PELVIS W/0 CONTRAS [CT] Stat Exams 02/02/19 23:06 Taken AMYLASE Stat Lab 02/02/19 22:00 Completed CBC W DIFF Stat Lab 02/02/19 22:00 Completed CK-Creatinine Phosphokinase Stat Lab 02/02/19 22:00 Completed CMP Stat Lab 02/02/19 22:00 Completed LIPASE Stat Lab 02/02/19 22:00 Completed TROPONIN Q3H Lab 02/02/19 22:00 Completed TROPONIN Q3H Lab 02/03/19 01:00 Ordered TROPONIN Q3H Lab 02/03/19 04:00 Ordered TROPONIN Q3H Lab 02/03/19 07:00 Ordered TROPONIN Q3H Lab 02/03/19 10:00 Ordered UA W/RFX UR CULTURE Stat Lab 02/02/19 22:00 Completed Medication Summary Generic Name Dose Route Start Last Admin Trade Name Cayetanoq PRN Reason Stop Dose Admin Sodium Chloride 1,000 mls @ 100 mls/hr 02/02/19 22:00 02/02/19 22:51 Sodium Chloride 0.9% 1000 Ml IV 03/04/19 21:59 100 mls/hr .Q10H BECKY Administration Lab/Rad Data: Laboratory Result Diagrams 02/02/19 22:00 02/02/19 22:00 Laboratory Results 02/02/19 02/02/19 02/02/19 Range/Units 22:00 22:00 22:00 WBC (4.0-10.5) K/mm3 RBC (4.1-5.6) M/mm3 Hgb (12.5-18.0) gm/dl Hct (42-50) % MCV (78-100) fl MCH (26-32) pg MCHC (32-36) g/dl RDW (11.5-14.0) % Plt Count (150-450) K/mm3 MPV (6-9.5) fl Gran % (36.0-66.0) % Eos # (Auto) (0-0.5) Absolute Lymphs (auto) (1.0-4.6) Absolute Monos (auto) (0.0-1.3) Lymphocytes % (24.0-44.0) % Monocytes % (0.0-12.0) % Eosinophils % (0.00-5.0) % Basophils % (0.0-0.4) % Absolute Granulocytes (1.4-6.9) Basophils # (0-0.4) Sodium (137-145) mmol/L Potassium (3.5-5.1) mmol/L Chloride (98-107) mmol/L Carbon Dioxide (22-30) mmol/L Anion Gap (5-15) MEQ/L BUN (9-20) mg/dL Creatinine (0.66-1.25) mg/dL Estimated GFR ML/MIN Glucose (74-106) mg/dL Calcium (8.4-10.2) mg/dL Total Bilirubin (0.2-1.3) mg/dL AST (17-59) U/L ALT (0-50) U/L Alkaline Phosphatase (38-126) U/L Creatine Kinase 107 (55-170) U/L Troponin I 0.033 (0.000-0.034) ng/mL Serum Total Protein (6.3-8.2) g/dL Albumin (3.5-5.0) g/dL Amylase (30-110) U/L Lipase (23-300) U/L Urine Color YELLOW (YELLOW) Urine Appearance CLEAR (CLEAR) Urine pH 7.0 (5-6) Ur Specific [place] 1.011 (1.005-1.025) Urine Protein NEGATIVE (Negative) Urine Ketones NEGATIVE (NEGATIVE) Urine Blood NEGATIVE (0-5) Casey/ul Urine Nitrite NEGATIVE (NEGATIVE) Urine Bilirubin NEGATIVE (NEGATIVE) Urine Urobilinogen NEGATIVE (0-1) mg/dL Ur Leukocyte Esterase NEGATIVE (NEGATIVE) Urine WBC (Auto) NONE (0-5) /HPF Urine RBC (Auto) NONE SEEN (0-2) /HPF U Epithel Cells (Auto) NONE (FEW) /HPF Urine Bacteria (Auto) NONE SEEN (NEGATIVE) /HPF Urine Culture Reflexed NO (NO) Urine Glucose 150 (NEGATIVE) mg/dL Slides for Path Review 02/02/19 02/02/19 Range/Units 22:00 22:00 WBC 9.1 (4.0-10.5) K/mm3 RBC 4.62 (4.1-5.6) M/mm3 Hgb 13.9 (12.5-18.0) gm/dl Hct 39.8 L (42-50) % MCV 86.1 (78-100) fl MCH 30.1 (26-32) pg MCHC 34.9 (32-36) g/dl RDW 13.2 (11.5-14.0) % Plt Count 95 L (150-450) K/mm3 MPV 9.2 (6-9.5) fl Gran % 65.8 (36.0-66.0) % Eos # (Auto) 0.25 (0-0.5) Absolute Lymphs (auto) 1.80 (1.0-4.6) Absolute Monos (auto) 1.06 (0.0-1.3) Lymphocytes % 19.7 L (24.0-44.0) % Monocytes % 11.6 (0.0-12.0) % Eosinophils % 2.7 (0.00-5.0) % Basophils % 0.2 (0.0-0.4) % Absolute Granulocytes 6.01 (1.4-6.9) Basophils # 0.02 (0-0.4) Sodium 139 (137-145) mmol/L Potassium 3.8 (3.5-5.1) mmol/L Chloride 103 (98-107) mmol/L Carbon Dioxide 29 (22-30) mmol/L Anion Gap 10.3 (5-15) MEQ/L BUN 25 H (9-20) mg/dL Creatinine 1.43 H (0.66-1.25) mg/dL Estimated GFR 49.7 ML/MIN Glucose 111 H (74-106) mg/dL Calcium 8.4 (8.4-10.2) mg/dL Total Bilirubin 0.40 (0.2-1.3) mg/dL AST 24 (17-59) U/L ALT 15 (0-50) U/L Alkaline Phosphatase 60 (38-126) U/L Creatine Kinase (55-170) U/L Troponin I (0.000-0.034) ng/mL Serum Total Protein 6.1 L (6.3-8.2) g/dL Albumin 3.0 L (3.5-5.0) g/dL Amylase 68 (30-110) U/L Lipase 27 (23-300) U/L Urine Color (YELLOW) Urine Appearance (CLEAR) Urine pH (5-6) Ur Specific [place] (1.005-1.025) Urine Protein (Negative) Urine Ketones (NEGATIVE) Urine Blood (0-5) Casey/ul Urine Nitrite (NEGATIVE) Urine Bilirubin (NEGATIVE) Urine Urobilinogen (0-1) mg/dL Ur Leukocyte Esterase (NEGATIVE) Urine WBC (Auto) (0-5) /HPF Urine RBC (Auto) (0-2) /HPF U Epithel Cells (Auto) (FEW) /HPF Urine Bacteria (Auto) (NEGATIVE) /HPF Urine Culture Reflexed (NO) Urine Glucose (NEGATIVE) mg/dL Slides for Path Review YES - Progress Progress: improved Progress Note: 02/03/19 01:11 Pt has been stable, no sign of pain or distress, afebrile, did not vomit. We reviewed his results, and discussed with him, he will be discharged home with instructions to follow up with his physician in 1 week. Counseled pt/family regarding: lab results, diagnosis, need for follow-up, rad results - Departure Departure Disposition: Home Clinical Impression: Abdominal pain Qualifiers: Abdominal location: periumbilical Qualified Code(s): R10.33 - Periumbilical pain Umbilical hernia Qualifiers: Obstruction and gangrene presence: without obstruction or gangrene Qualified Code(s): K42.9 - Umbilical hernia without obstruction or gangrene Condition: Stable Critical Care Time: No Referrals: KELSI COMBS [Primary Care Provider] - Instructions: Acute Abdomen (Belly Pain), Adult (DC), Umbilical Hernia, Adult Additional Instructions: Rest x 2-3 days, drink plenty of fluids, and follow up with your physician in one week, return if severe pain, vomiting or fever> 102 F!
[2019-02-02] MEDS ORDERED: Sodium Chloride 0.9% 1000 ML 1,000 ML ONE (22:27)
[2019-02-02 22:40] LABS: BASOPHIL % 0.2 % (0.0-0.4); Basophil (Absolute #) 0.02 (0-0.4); Eosinophil % 2.7 % (0.00-5.0); Eosinophil (Absolute #) 0.25 (0-0.5); Granulocyte Absolute (ANC) 6.01 (1.4-6.9); Granulocytes % 65.8 % (36.0-66.0); Hematocrit 39.8 % (42-50); Hemoglobin 13.9 gm/dl (12.5-18.0); Lymphocytes % 19.7 % (24.0-44.0); Mean Cell Volume 86.1 fl (78-100); Mean Corpuscular Hemoglobin 30.1 pg (26-32); Mean Corpuscular Hgb Concent. 34.9 g/dl (32-36); Mean Platelet Volume 9.2 fl (6-9.5); Monocyte (Absolute #) 1.06 (0.0-1.3); Monocytes % 11.6 % (0.0-12.0); Platelet Count 95 K/mm3 (150-450); Red Blood Count 4.62 M/mm3 (4.1-5.6); Red Cell Distribution Width 13.2 % (11.5-14.0); White Blood Count 9.1 K/mm3 (4.0-10.5)
[2019-02-02 22:45] LABS: Appearance CLEAR (CLEAR); Bilirubin NEGATIVE (NEGATIVE); Blood NEGATIVE Ery/ul (0-5); Glucose 150 mg/dL (NEGATIVE); Ketones NEGATIVE (NEGATIVE); Leukocyte Esterase NEGATIVE (NEGATIVE); Nitrite NEGATIVE (NEGATIVE); Protein,Urine Dip NEGATIVE (Negative); Specific Gravity 1.011 (1.005-1.025); Urobilinogen NEGATIVE mg/dL (0-1)
[2019-02-02 22:51] LABS: ANION GAP 10.3 MEQ/L (5-15); BILIRUBIN,TOTAL 0.4 mg/dL (0.2-1.3); Bacteria NONE SEEN /HPF (NEGATIVE); Calcium 8.4 mg/dL (8.4-10.2); Creatinine 1 1.43 mg/dL (0.66-1.25); Potassium 3.8 mmol/L (3.5-5.1); RBC NONE SEEN /HPF (0-2); Total Protein 6.1 g/dL (6.3-8.2)
[2019-02-02] MEDS: Sodium Chloride 0.9% 1000 ML 1,000 ML IV SCH (22:51)
[2019-02-03 00:17] LABS: Slide Review 1 YES
[2019-02-03] MEDS ORDERED: ENOXAPARIN SODIUM SQ ONE (02:15)
[2019-02-03] MEDS ORDERED: Ecotrin 325 MG PO ONE (02:15)
[2019-02-03] MEDS ORDERED: Nitrostat 0.4 MG Tablet SL PRN (02:21)
[2019-02-03] MEDS ORDERED: MILK OF MAGNESIA 30 ML PO PRN (02:21)
[2019-02-03] MEDS ORDERED: MAALOX ES 30 ML UNIT DOSE PO PRN (02:21)
[2019-02-03] MEDS ORDERED: NovoLOG Insulin SQ PRN ×2 (02:21→08:50)
[2019-02-03] MEDS ORDERED: Zofran 4 MG/2 ML VIAL IV PRN (02:21)
[2019-02-03] MEDS ORDERED: Senokot-S Tablet PO PRN (02:21)
[2019-02-03] MEDS ORDERED: BREVIBLOC 100 MG/10 ML IV ONE (02:45)
[2019-02-03] MEDS ORDERED: DIPRIVAN 200 MG/20 ML IV ONE (02:45)
[2019-02-03] MEDS: Sodium Chloride 0.9% 1000 ML 1,000 ML IV SCH (03:38)
[2019-02-03 05:03] LABS: Risk Ratio 4.2
[2019-02-03] MEDS: TYLENOL 325 MG PO PRN ×3 (08:00→23:02)
[2019-02-03] MEDS ORDERED: SENOKOT 8.6 MG PO PRN (08:53)
--- NOTE | 2019-02-03 09:05 | XRAY ---
Indication: Abdomen pain. Constipation. Multiple contiguous axial images obtained through the abdomen and pelvis without contrast as ordered. Comparison: January 28, 2019. Lung bases again demonstrates pulmonary emphysema and calcified granulomas. Heart is not enlarged again with partially visualized pacer leads. Noncontrasted stomach and bowel loops appear nonobstructed. Again mild diffuse scattered colonic fecal debris throughout and scattered diverticulosis again greatest sigmoid. No free fluid/air. Stable enlarged prostate gland, bilateral renal cysts, 1.5 cm right adrenal adenoma, and tiny hepatic/splenic calcified granulomas. Remaining liver, gallbladder, pancreas, spleen, left adrenal gland, kidneys, ureters, and bladder appear unremarkable for noncontrast exam. Stable diffuse scattered arteriosclerotic disease and multifocal AAA. Osseous structures remain intact again with mild degenerative changes. Impression: 1. Stable CT abdomen/pelvis without contrast exam again demonstrating fecal stasis without obstruction, colonic diverticulosis, renal cysts, right adrenal adenoma, enlarged prostate gland, diffuse arteriosclerotic disease with multifocal AAA, and evidence for wall granulomatous disease. 2. No new or acute intra-abdominal/pelvic abnormalities. Comment: Preliminary interpretation was made by [facility]. No discrepancy. CT DI 13.05
[2019-02-03] MEDS ORDERED: TYLENOL 325 MG PO PRN (09:34)
[2019-02-03] MEDS ORDERED: NON-FORMULARY ITEM (Carvedilol [Coreg] 25 MG) PO SCH (10:00)
[2019-02-03] MEDS ORDERED: NON-FORMULARY ITEM (Lansoprazole [Prevacid] 30 MG) PO SCH (10:00)
[2019-02-03] MEDS ORDERED: ECOTRIN 81 MG PO SCH (10:00)
[2019-02-03] MEDS ORDERED: Ecotrin 325 MG PO SCH (10:00)
[2019-02-03] MEDS: Miralax Powder 17GM PACKET PO SCH ×2 (10:20→22:05)
[2019-02-03] MEDS: LASIX 20 MG PO SCH ×2 (10:21→16:25)
[2019-02-03] MEDS: COREG 12.5 MG PO SCH ×2 (10:21→22:02)
[2019-02-03] MEDS: Protonix 40MG Tablet PO SCH (10:21)
[2019-02-03] MEDS: Cozaar 50 MG PO SCH (10:21)
[2019-02-03] MEDS: Lanoxin 0.125MG TABLET PO SCH (10:21)
[2019-02-03] MEDS: Colace 100 MG PO SCH ×2 (10:21→22:02)
--- NOTE | 2019-02-03 12:56 | HP ---
HISTORY OF PRESENT ILLNESS: This is an 88 year-old patient of mine who was recently discharged from the hospital on Thursday after having had report of melena and having had a colonoscopy with the general surgeon. He called the office late yesterday and said he was having some gas-type pain. I advised that he could try some simethicone, that I could follow up with him in the clinic the following day or if he was having further problems he could go to the emergency department as it was almost time for the office to close. The patient presented to the emergency department last night. According to the emergency room physician's note, he was having some abdominal pain around his umbilical hernia that was found on exam. The patient had one normal troponin and one that was 1 to 2 thousandths of a point high. The emergency room physician talked to his electrician deck, Dr. Frank, and they decided it would be best if stayed in the hospital and Dr. Frank would see him in the morning. The patient reports that he continues to feel constipated even though he was completely cleaned out for a colonoscopy on Thursday and had that done. He reports a poor appetite. The patient reports that abdominal pain is right at his umbilicus and hurts when pushing on it during the exam. The patient is concerned about his constipation. He reports he tolerates MiraLAX fine. The patient denies any chest pain at this time. REVIEW OF SYSTEMS: No chest pain. No shortness of breath. He has abdominal pain and constipation. No diarrhea. No lower extremity edema. No rashes. PAST MEDICAL HISTORY: Coronary artery disease. Incidentally found abdominal aortic aneurysm that is less than 5 cm. Constipation. Diverticulosis. Coronary artery disease. Diabetes mellitus type 2. Gastroesophageal reflux. Benign prostatic hypertrophy. History of pacemaker with defibrillator. Chronic kidney disease. PAST SURGICAL HISTORY: Pacemaker with defibrillator. Cataract surgery. Coronary artery bypass graft in 1988. MEDICATIONS: Please see the home medication reconciliation form which I have reviewed. ALLERGIES: NKDA. SOCIAL HISTORY: He used to smoke but no longer does. He does have a 43 year tobacco history. FAMILY HISTORY: Noncontributory. PHYSICAL EXAMINATION: VITAL SIGNS: Temperature current 98F, temperature max 98.1F, heart rate 65 to 80, respiratory rate 18 to 20, blood pressure 166 to 184 over 79 to 90. Oxygen saturation 93 to 97% on room air to 2 liters nasal cannula. GENERAL: The patient is sitting up in his chair in no acute distress. CVS: He has a regular rate and rhythm. No murmurs, gallops or rubs are appreciated. CHEST: Clear to auscultation bilaterally. No crackles or wheezes. ABDOMEN: Soft with tenderness right at the umbilicus. He has an easily reducible 0.5 cm umbilical hernia that the patient states is painful when reduced. Normal bowel sounds. EXTREMITIES: No clubbing, cyanosis or edema. SKIN: Warm, dry and intact. LABORATORY DATA AND TESTS: ASSESSMENT AND PLAN: 1) ELEVATED TROPONIN: Continues to be very slightly elevated. Dr. Frank was consulted and plans to see the patient. He is on aspirin. 2) CONSTIPATION: Will start MiraLAX b.i.d. as well as docusate b.i.d. and Senna as needed. 3) UMBILICAL HERNIA: If he is cleared by Dr. Frank then I will have the general surgeon see him for this tomorrow. 4) CORONARY ARTERY DISEASE: Continue current medications. 5) ABDOMINAL AORTIC ANEURYSM WITHOUT RUPTURE: It was found incidentally on his recent hospitalization. I will ask Dr. Frank to follow him for this as well. 6) ABDOMINAL PAIN: Seems located right at the umbilicus where the umbilical hernia is. He has no right upper quadrant pain. No guarding. No rigidity.
[2019-02-03] MEDS ORDERED: Lasix 20 MG/2 ML IV ONE (20:15)
[2019-02-03] MEDS ORDERED: NON-FORMULARY ITEM (Atorvastatin Calcium [Atorvastatin Calcium] 40 MG) PO SCH (22:00)
[2019-02-03] MEDS: ZOCOR 20MG PO SCH (22:02)
[2019-02-04] MEDS: TYLENOL 325 MG PO PRN ×4 (03:14→22:54)
[2019-02-04] MEDS: COREG 12.5 MG PO SCH ×2 (08:08→21:21)
[2019-02-04] MEDS: LASIX 20 MG PO SCH ×2 (08:08→17:22)
[2019-02-04] MEDS: Miralax Powder 17GM PACKET PO SCH ×2 (08:08→21:20)
[2019-02-04] MEDS: Protonix 40MG Tablet PO SCH (08:09)
[2019-02-04] MEDS: Lanoxin 0.125MG TABLET PO SCH (08:09)
[2019-02-04] MEDS: Colace 100 MG PO SCH ×2 (08:09→21:21)
--- NOTE | 2019-02-04 08:09 | CONS ---
CONSULT DATE: 02/03/2019 BRIEF HISTORY: This is an 88 year-old male with known history of coronary artery disease status post previous coronary bypass surgery with ischemic cardiomyopathy who was seen for cardiologic follow up and history of shortness of breath. The patient was apparently admitted for abdominal pain. He is being worked up for etiology of abdominal pain and had colonoscopy done last Thursday and post-procedure apparently has been having a lot of chest pain. CT scan of the abdomen showed no acute process. There was no evidence of obstruction. The patient denies any chest pain. He has been chronically short of breath but not any worse. The patient is known to have coronary artery disease and underwent six vessel coronary bypass surgery way in 1988. He has sustained significant left ventricular dysfunction. He has ICD pacemaker implanted for arrhythmia. CARDIAC RISK FACTORS: Includes diabetes. He has history of hypertension. He has hyperlipidemia. He does not smoke. FAMILY HISTORY: Positive for coronary artery disease. 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 RESPIRATORY: Occasional cough but no hemoptysis. GI: He has abdominal pain. He has history of peptic ulcer disorder. : No dysuria or hematuria. No flank pains. ENDOCRINE: No thyroid disorder. SKIN: No active dermatological problems. HEMATOLOGY: He bruises easily. PERIPHERAL VASCULAR: No history of deep venous thrombosis or claudication. PAST SURGICAL HISTORY: Coronary bypass surgery. Placement of an ICD defibrillator. 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 He is and has five children. PHYSICAL EXAMINATION: The blood pressure is 150/80 with a heart rate of 70, respirations around 16. GENERAL: The patient is an elderly male who is alert, mostly still complaining of some vague abdominal pain, is not in any form of distress. HEENT: Nonicteric sclera. Pinkish conjunctivae. NECK: No obvious JVD. CHEST: The breath sounds are clear except the right base is mildly diminished. There is no rhonchi or wheezing. CARDIAC: Heart tones are distant. The rhythm is regular. There is a grade 2/6 mid systolic murmur. There is an S4 gallop. ABDOMEN: Slightly tender and appears to be distended with rapid bowel sounds. EXTREMITIES: No significant edema with decreased distal pulses. LAB DATA AND DIAGNOSTIC TESTS: The EKG shows pacemaker rhythm. Review of the CT scan of the abdomen did show some mild abdominal aortic aneurysm which can be closely followed up. IMPRESSION: In essence the patient is admitted primarily for: 1) Abdominal pain which is currently being worked up. 2) Coronary artery disease status post previous coronary bypass surgery with ischemic cardiomyopathy currently angina free. Will stay on the same medical regimen as he appears to be well compensated. 3) Status post pacemaker/defibrillator. 4) History of hypertension. 5) History of hyperlipidemia. I will continue with the same medical regimen.
[2019-02-04] MEDS: Cozaar 50 MG PO SCH (08:10)
--- NOTE | 2019-02-04 08:45 | PCM.NOTE ---
Date and Time: 02/04/19 0840 Subjective Assessment: Patient reports continued abdominal pain mostly around his umbilicus. He states he isn't eating much, losing weight. He reports he can't belch when he wants to. He had one stool yesterday. He was seen by Dr. Frank yesterday and BNP was high and given an extra dose of IV lasix. - Review of Systems Eyes: No Symptoms Ears, Nose, & Throat: No Symptoms Respiratory: No Symptoms Cardiac: No Symptoms Abdominal/Gastrointestinal: Abdominal Pain Genitourinary Symptoms: No Symptoms Musculoskeletal: No Symptoms Objective Exam General Appearance: mild distress, thin, other (holding his stomach with his hands) Neurologic Exam: alert, cooperative Skin Exam: normal color, warm, dry Respiratory Exam: normal breath sounds, lungs clear, No crackles/rales, No rhonchi, No wheezing Cardiovascular Exam: regular rate/rhythm, normal heart sounds, No murmur, No friction rub, No gallop Gastrointestinal/Abdomen Exam: soft, normal bowel sounds, tenderness, other ( right upper abdominal pain and periumbilical pain. He has a small umbilical hernia that reduces but patient states it hurts when it is pushed on), No distention, No mass Extremity Exam: other (no c/c/e) OBJECTIVE DATA Vital Signs: Vital Signs - 24 hr Temp Pulse Resp BP BP BP Pulse Ox 02/04/19 08:24 71 16 96 02/04/19 08:09 76 178/84 02/04/19 07:00 97.9 F 76 18 178/84 96 02/04/19 03:52 97.4 F 80 18 152/73 96 02/04/19 03:00 95 02/03/19 23:29 97.6 F 77 18 190/96 95 02/03/19 23:00 95 02/03/19 19:59 92 L 02/03/19 19:39 97.5 F 78 18 173/83 100 02/03/19 19:00 100 02/03/19 15:59 98 F 67 18 160/74 100 02/03/19 15:00 97 02/03/19 12:00 98.0 F 79 18 166/79 97 02/03/19 11:00 97 Oxygen-Last 24 hours O2 Percentage 2 Liters = 28% O2 Percentage 2 Liters = 28% O2 Percentage 2 Liters = 28% Oxygen Flowrate (L/min)-RT 2 Oxygen Flowrate (L/min)-RT 2 Oxygen Flowrate (L/min)-RT 2 Oxygen Flowrate (L/min)-RT 2 Oxygen Flowrate (L/min)-RT 2 Oxygen Flowrate (L/min)-RT 2 Pain Assessment - Last Documented Pain Intensity 8 Pain Scale Used 0-10 Pain Scale Intake and Output: Intake & Output 02/02/19 02/03/19 02/04/19 02/05/19 06:59 06:59 06:59 06:59 Intake Total 240 3544 240 Output Total 350 4525 Balance -110 -981 240 Weight 55.5 kg Lab Results: Accuchecks Date 02/04/19 Date 02/03/19 Date 02/03/19 Time 07:30 Time 16:30 Time 11:00 Accucheck Value: 91 Accucheck Value: 191 Accucheck Value: 132 Accucheck Value: 120 Lab Results-Last 24 Hours 02/03/19 02/03/19 02/04/19 Range/Units 10:03 Unknown 05:15 Troponin I 0.036 H* (0.000-0.034) ng/mL NT-Pro-B Natriuret Pep 9260 H (0-1800) pg/mL Digoxin 1.3 (0.8-1.9) ng/mL Radiology Exams: Radiology Procedures Category Date Time Status ABDOMEN AND PELVIS W/0 CONTRAS [CT] Stat Exams 02/02/19 23:06 Completed GALLBLADDER [US] Routine Exams 02/04/19 Ordered Multi-Disciplinary Progress Notes: Multi-Disciplinary Progress Notes 02/03/19 09:48 Case Management Note by Noy Brewer CHRONIC CARE COORDINATION INFORMATION GIVEN TO PT AT THIS TIME. Initialized on 02/03/19 09:48 - END OF NOTE Assessment/Plan (1) CAD (coronary artery disease) Current Visit: No Status: Acute Assessment & Plan: Dr. Frank saw him and feels like he is stable. Will discontinue tele. Continue aspirin and current treatment. Code(s): I25.10 - ATHSCL HEART DISEASE OF [place] CORONARY ARTERY W/O ANG PCTRS (2) Abdominal pain Current Visit: Yes Status: Acute Qualifiers: Abdominal location: periumbilical Qualified Code(s): R10.33 - Periumbilical pain Assessment & Plan: Will ask for General Surgery consult and check right upper quadrant US. Will start simethicone. Code(s): R10.9 - UNSPECIFIED ABDOMINAL PAIN (3) Constipation Current Visit: Yes Status: Acute Assessment & Plan: Continue miralax bid and colace and senna as needed. 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 Code(s): I71.4 - ABDOMINAL AORTIC ANEURYSM, WITHOUT RUPTURE (5) Umbilical hernia without obstruction and without gangrene Current Visit: Yes Status: Acute Assessment & Plan: General surgery consult. Code(s): K42.9 - UMBILICAL HERNIA WITHOUT OBSTRUCTION OR GANGRENE (6) Poor appetite Current Visit: Yes Status: Acute Assessment & Plan: Will add Ensure. Code(s): R63.0 - ANOREXIA
[2019-02-04] MEDS: Mylicon 80MG PO SCH ×4 (09:31→21:20)
[2019-02-04] MEDS ORDERED: ECOTRIN 81 MG PO SCH ×2 (10:00)
[2019-02-04] MEDS: Sodium Chloride 0.9% 1000 ML 1,000 ML IV SCH (13:23)
--- NOTE | 2019-02-04 14:53 | XRAY ---
Indication: Right upper quadrant pain. Two-dimensional gallbladder sonogram performed. Comparison: None Gallbladder normally distended without gallstones, wall thickening, or pericholecystic fluid. Common bile duct measures 2.1 mm. No intrahepatic biliary distention. Remaining visualized liver and pancreas appear sonographically unremarkable. Right kidney measures 9.8 cm in length with a 1.2 cm lower pole cortical cyst. No solid renal mass or hydronephrosis. Impression: 1. Right renal cyst. 2. Remaining gallbladder sonogram is negative.
--- NOTE | 2019-02-04 15:43 | CONS ---
CONSULT DATE: 02/04/2019 HISTORY: The patient is an 88 year-old gentleman who has eaten, had some upper abdominal pain and had a gallbladder ultrasound. I was asked to see for surgical evaluation. The patient does have some diverticular disease, had some rectal bleeding recently. He had colonoscopy with no active bleeding. He had some diverticulosis. PAST MEDICAL HISTORY: He has coronary artery disease. History of pacemaker/defibrillator. Hypertension, hyperlipidemia, abdominal aortic aneurysm, diabetes, reflux, history of benign prostatic hypertrophy, renal insufficiency. PAST SURGICAL HISTORY: Pacemaker. Cataract. Coronary artery bypass graft in the past. MEDICATIONS: As reviewed per NOV. ALLERGIES: NKDA. REVIEW OF SYSTEMS: Fourteen systems reviewed per admission assessment, history and physical and consult on the chart. No current chest pain or palpitations. PHYSICAL EXAMINATION: GENERAL: A chronically ill gentleman. HEENT: Sclera nonicteric. NECK: No JVD. CHEST: Equal excursion, nonlabored breathing. CVS: Regular rate and rhythm. ABDOMEN: Soft with some mild tenderness epigastrium. No peritoneal signs. He has a tiny stable umbilical hernia but he is not having any tenderness at it right now and not the source of his current symptoms. EXTREMITIES: No significant edema. NEURO: Alert, moving extremities grossly symmetrically. LAB DATA AND TESTS: White blood cell count 9.1, hemoglobin 13.9, PLT 95,000. He has minimal pain, umbilical hernia. No bowel obstruction. Unchanged from previous. IMPRESSION: Some vague abdominal pain reportedly negative gallbladder ultrasound according to the staff. He is nontoxic. He is interested in considering EGD to evaluate for gastritis, peptic ulcer disease or other etiology. If it is negative, he could likely be released and if he wanted small hernia fixed electively as an outpatient we can do that. I do not think that is causing his current aches and pains. General risk of bleeding or infection, risk of bowel injury or perforation possibly requiring open procedure but not limited to. Consent obtained. Will proceed with EGD possible biopsy when OR time available.
[2019-02-04] MEDS ORDERED: Lasix 20 MG/2 ML IV ONE (20:15)
[2019-02-04] MEDS: ZOCOR 20MG PO SCH (21:22)
[2019-02-05] MEDS: TYLENOL 325 MG PO PRN (04:25)
[2019-02-05 08:00] LABS: ANION GAP 10.1 MEQ/L (5-15); BILIRUBIN,TOTAL 0.7 mg/dL (0.2-1.3); Calcium 8.6 mg/dL (8.4-10.2); Creatinine 1 1.27 mg/dL (0.66-1.25); Potassium 4.3 mmol/L (3.5-5.1); Total Protein 6.2 g/dL (6.3-8.2)
[2019-02-05 08:15] LABS: Hemoglobin 14.5 gm/dl (12.5-18.0); Mean Cell Volume 86.6 fl (78-100); Mean Corpuscular Hemoglobin 29.9 pg (26-32); Mean Corpuscular Hgb Concent. 34.5 g/dl (32-36); Mean Platelet Volume 9.3 fl (6-9.5); Platelet Count 108 K/mm3 (150-450); Red Blood Count 4.85 M/mm3 (4.1-5.6); Red Cell Distribution Width 13.2 % (11.5-14.0); White Blood Count 9.7 K/mm3 (4.0-10.5)
[2019-02-05 08:19] VITALS: O2SAT 91
[2019-02-05] MEDS: Miralax Powder 17GM PACKET PO SCH (09:34)
[2019-02-05] MEDS: Colace 100 MG PO SCH (09:35)
[2019-02-05] MEDS: COREG 12.5 MG PO SCH (09:35)
[2019-02-05] MEDS: Cozaar 50 MG PO SCH (09:35)
[2019-02-05] MEDS: Lanoxin 0.125MG TABLET PO SCH (09:35)
[2019-02-05] MEDS: Mylicon 80MG PO SCH ×2 (09:36→13:02)
[2019-02-05] MEDS: LASIX 20 MG PO SCH (09:36)
[2019-02-05] MEDS: Protonix 40MG Tablet PO SCH (09:36)
[2019-02-05 12:54] VITALS: BP 146/69; PULSE 81
--- NOTE | 2019-02-08 07:41 | OP ---
SURGERY DATE/TIME: 02/04/2019 1500 PREOPERATIVE DIAGNOSIS: Upper abdominal pain unclear etiology. POSTOPERATIVE DIAGNOSIS: Minimal to mild gastritis. PROCEDURES: 1) EGD with cold biopsy of the small bowel to evaluate for celiac sprue. 2) Cold biopsy of the antrum to evaluate for Helicobacter pylori. 3) Cold biopsy distal esophagus to evaluate for very short segment of distal gastroesophagitis versus normal variation of the gastroesophageal junction, path pending. SURGEON: Dr. Dl Jarvis. ANESTHESIA: MAC. ESTIMATED BLOOD LOSS: Minimal. INDICATIONS: As noted above. Risks and benefits explained in detail and not limited to and consent obtained. DESCRIPTION OF PROCEDURE AND FINDINGS: The patient is taken to the operating room. MAC anesthesia introduced. After official time out and no disagreement with planned procedure, a bite block positioned. Video gastroscope easily passed down the esophagus through the patent pylorus to the junction of the second and third portion of the duodenum. Duodenum and duodenal bulb were grossly unremarkable. Given his symptom complaints, cold biopsy taken of the small bowel to evaluate for celiac sprue. Good hemostasis noted. The scope pulled back to the antrum. Cold biopsy taken of the antrum to evaluate for Helicobacter pylori. He had some mild gastric erythema, possible minimal to mild gastritis. There were no signs of any ulcers, masses, polyps on retroflex or any other mucosal lesions other than the mild erythema of the stomach. On retroflex the gastroesophageal junction snug against the scope. There were no signs of any significant hiatal hernia viewable endoscopically. Scope pulled back gastroesophageal junction is about 38 cm. Z-line was fairly crisp. There was one small area maybe a couple millimeters of little fingerlet whether this was early distal gastroesophagitis versus just normal variation of the gastroesophageal junction. Cold biopsy taken of the area. Good hemostasis noted. Otherwise evaluated for eosinophilic esophagitis. Otherwise the rest of the mucosa was unremarkable. There were no signs of any obvious masses or other mucosal lesions in the esophagus. The patient tolerated the procedure well. There were no immediate complications. There was no family available to discuss the findings with.
== END 2019-02-05 13:20 | disposition home or self-care (01) ==
LOC: ED 01:46 → MED SURG 02-03 02:44
PROVIDERS: ADMIT Internal Medicine; ATTEND Internal Medicine
DX: I25.10 Atherosclerotic heart disease of native coronary artery without angina pectoris (principal); R10.33 Periumbilical pain; R79.89 Other specified abnormal findings of blood chemistry; K29.70 Gastritis, unspecified, without bleeding; K59.00 Constipation, unspecified; K42.9 Umbilical hernia without obstruction or gangrene; I71.4 Abdominal aortic aneurysm, without rupture; R63.0 Anorexia; E11.9 Type 2 diabetes mellitus without complications; I10 Essential (primary) hypertension; E78.5 Hyperlipidemia, unspecified; Z79.82 Long term (current) use of aspirin; Z79.899 Other long term (current) drug therapy; Z95.0 Presence of cardiac pacemaker
CPT/HCPCS: 36415; 74176; 76705; 80053; 80061; 80162; 81001; 82150; 82550; 82962; 83690; 83721; 83880; 84484; 85025; 85027; 87081; 88305; 93005; 93268; 94760; 96360; 96361; 99100; 99285; G0378; J1650; J1940; J2704; A9270-GY